=== PATIENT | male | born 1950 | race African-American/Black ===

== ENCOUNTER → 2017-03-16 | Outpatient (CLI) | payer MEDICARE, MEDICAID ==
[~2017-03-16] MED LIST: ALLOPURINOL100 M1 ORAL; BENADRYL25 MG ORAL; COLACE100 MG ORAL; CRESTOR10 M1 ORAL; ERYTHROMYCIN 2%30 GM TP; NEPHROVITE1 TAB ORAL; PLAVIX75 MG ORAL; PREDNISONE20 MG ORAL; PREVACID30 MG ORAL; RENAGEL400 MG ORAL; SENSIPAR30 MG ORAL; ZANTAC150 MG ORAL
--- NOTE | 2017-03-17 08:33 | Diagnostic Imaging Report ---
Indication: Cough Technique: One view of the chest Comparison: 11/02/2016 Findings: Lungs and pleural spaces are clear. Heart size is borderline enlarged. No significant change Impression: No acute process Borderline cardiomegaly
== END | disposition home or self-care (01) ==
LOC: RAD 16:00
DX: I50.9 Heart failure, unspecified (principal); J45.909 Unspecified asthma, uncomplicated
CPT/HCPCS: 71020

== ENCOUNTER 2017-04-29 02:01 | Inpatient (IN) | payer MEDICARE, MEDICAID ==
[~2017-04-29] VITALS: Ht 157.5 cm; Wt 109.3 kg
[2017-04-29] VITALS (7 sets, daily range): BP systolic 92–153; BP diastolic 64–84
[2017-04-29] MEDS ORDERED: Albuterol ud Inhalation ONE (02:25)
[2017-04-29] MEDS ORDERED: Ipratropium 0.02% Inh Soln 2.5ml UD ONE (02:25)
[2017-04-29] MEDS ORDERED: Albuterol ud Inhalation HHN ONE ×2 (02:30→04:15)
[2017-04-29] MEDS ORDERED: Solu-MEDROL 125mg Inj IVP ONE (02:30)
[2017-04-29] MEDS ORDERED: Ipratropium 0.02% Inh Soln 2.5ml UD HHN ONE (02:30)
[2017-04-29 02:47] LABS: BASOPHILS % (AUTO) 0.6 % (0.0-2.0); LYMPHOCYTES % (AUTO) 15.9 % (20.0-45.0); MEAN CORPUSCULAR HEMOGLOBIN 28.3 PG (27.0-31.0); MEAN CORPUSCULAR HGB CONC 31.4 G/DL (32.0-36.0); MEAN CORPUSCULAR VOLUME 90 FL (80-99); MEAN PLATELET VOLUME 7.8 FL (6.5-10.1); MONOCYTES % (AUTO) 10.1 % (1.0-10.0); NEUTROPHILS % (AUTO) 70.4 % (45.0-75.0); PLATELET COUNT 119 K/UL (150-450); RED BLOOD COUNT 5.24 M/UL (4.70-6.10); RED CELL DISTRIBUTION WIDTH 13.7 % (11.6-14.8); WHITE BLOOD COUNT 10.5 K/UL (4.8-10.8)
--- NOTE | 2017-04-29 02:49 | Emergency Room Report ---
History of Present Illness General Chief Complaint: Dyspnea/Respdistress Source: Patient Present Illness HPI Is a 66-year-old male with a history of renal transplant in 2015 at [facility]. He also a history of asthma. He has albuterol and Qvar but doesn't take it regularly. For the last 2 days his been congested and coughing. Rogers wheezy. He took his Qvar said he wasn't helping. No fever or chills. No nausea no vomiting. No chest pain. No pedal edema. Denies any weight gain. Allergies: Coded Allergies: CEPHALEXIN (Verified Allergy, Mild, RASH, 09/14/11) AMOXICILLIN (Verified Allergy, Unknown, RASH, 09/14/11) CODEINE (Verified Allergy, Unknown, RASH, 09/14/11) DOXYCYCLINE (Verified Allergy, 06/21/12) Patient History Past Medical History: see triage record, old chart reviewed, HTN, asthma Past Surgical History: other - Kidney transplant Pertinent Family History: none Social History: Denies: smoking Immunizations: other Reviewed Nursing Documentation: PMH: Agreed, PSxH: Agreed Nursing Documentation-PMH Hx Hypertension: Yes - ESRD Hx Asthma: Yes Hx Dialysis: Yes - KIDNEY TRANSPLANT 2014 Review of Systems Eye: Denies: blurred vision, eye pain ENT: Reports: nose congestion, Denies: ear pain, throat swelling Respiratory: Reports: cough, shortness of breath, wheezing Cardiovascular: Denies: chest pain, palpitations Gastrointestinal: Denies: abdominal pain, diarrhea, nausea, vomiting Musculoskeletal: Denies: back pain, joint pain Skin: Denies: rash Neurological: Denies: headache, numbness Endocrine: Denies: increased thirst, increased urine Hematologic/Lymphatic: Denies: easy bruising All Other Systems: negative except mentioned in HPI Physical Exam Vital Signs Date Time Temp Pulse Resp B/P Pulse Ox O2 Delivery O2 Flow Rate FiO2 04/29/17 02:04 98.1 72 20 118/82 97 Room Air vitals normal Sp02 EP Interpretation: reviewed, normal General Appearance: well appearing, no apparent distress, alert Head: normocephalic, atraumatic Eyes: bilateral eye EOMI, bilateral eye PERRL ENT: hearing grossly normal, normal pharynx Neck: full range of motion, supple, no meningismus Respiratory: chest non-tender, wheezing Cardiovascular #1: regular rate, rhythm, no murmur Gastrointestinal: normal bowel sounds, non tender, no mass, no organomegaly, no bruit, non-distended Musculoskeletal: back normal, gait/station normal, normal range of motion, other - trace edema Neurologic: alert, oriented x3 Psychiatric: mood/affect normal Skin: warm/dry Medical Decision Making Diagnostic Impression: Primary Impression: Acute exacerbation of CHF (congestive heart failure) Qualified Codes: I50.9 - Heart failure, unspecified Additional Impression: Asthma exacerbation ER Course Patient with wheezing and shortness of breath. He has accommodation a mild fluid overloaded and also asthma. Better after breathing treatment. He normally takes 40 mg Lasix twice today. Creatinine is at baseline per patient. I gave him a dose of Lasix IV here. He is feeling better. We'll admit for further workup. No evidence of ACS, PE, dissection to name a few. No pneumonia. Lab Results Impression labs with elevated BUN/creatinine and BNP EKG Diagnostic Results Rate: normal Rhythm: NSR ST Segments: no acute changes Rhythm Strip Diag. Results EP Interpretation: yes Rate: 95 Rhythm: NSR, no PVC's, no ectopy Chest X-Ray Diagnostic Results EP Interpretation: Yes Findings: no consolidation, no effusion, no pneumothorax, other - CM With Vascular congestion Number of Views: 1 Last Vital Signs Date Time Temp Pulse Resp B/P Pulse Ox O2 Delivery O2 Flow Rate FiO2 04/29/17 02:32 82 22 98 Room Air 04/29/17 02:04 98.1 118/82 Status: unchanged Disposition: ADMITTED INPATIENT Condition: Serious EULA PETER M.D. Apr 29, 2017 02:49
[2017-04-29 03:04] LABS: TROPONIN I < 0.30 ng/mL (<=0.30)
[2017-04-29 03:05] LABS: ALBUMIN/GLOBULIN RATIO 1.5 (1.0-2.7); CALCIUM 9.2 mg/dL (8.6-10.2); CREATININE 2.5 mg/dL (0.7-1.2); GLOMERULAR FILTRATION RATE 31.6 mL/min (>60); POTASSIUM 3.9 mEQ/L (3.4-4.9); TOTAL PROTEIN 7.5 g/dL (6.6-8.7)
[2017-04-29 03:15] LABS: CKMB 3.4 ng/mL (< 6.7)
[2017-04-29] MEDS ORDERED: CALTRATE+D3 PL1 EACH PO (03:35)
[2017-04-29] MEDS ORDERED: CLARITIN10 M2 ORAL (03:35)
[2017-04-29] MEDS ORDERED: ZOLPIDEM TARTRA10 MG ORAL (03:35)
[2017-04-29] MEDS ORDERED: FUROSEMIDE40 MG ORAL (03:35)
[2017-04-29] MEDS ORDERED: Calcium Carbonate 500mg w/Vit D 200iu tab ORAL ONE (05:00)
[2017-04-29] MEDS: DuoNeb 0.5-3(2.5)mg/3ml neb HHN PRN ×2 (08:20→15:09)
[2017-04-29] MEDS: Allopurinol 100mg Tab ORAL SCH (09:37)
[2017-04-29] MEDS: PredniSONE 20mg tab ORAL SCH ×2 (09:38→17:18)
[2017-04-29] MEDS: Sensipar 30mg Tab ORAL SCH (09:39)
[2017-04-29] MEDS: Docusate 100mg cap ORAL SCH (09:39)
[2017-04-29] MEDS: Heparin 5000 units/ml inj SUBQ SCH ×2 (09:41→21:00)
--- NOTE | 2017-04-29 11:23 | Diagnostic Imaging Report ---
Indication: SOB Technique: One view of the chest Comparison: March 16, 2017 Findings: The heart is mildly enlarged.. Questionable minimal interstitial congestion. Pleural spaces are clear. No focal airspace consolidation Impression: Megaly Doubt but cannot completely exclude minimal interstitial congestion. Correlate with clinical findings This agrees with the preliminary interpretation provided by the emergency room physician
[2017-04-29] MEDS: Bumetanide 2.5mg/10ml Inj IVP SCH ×2 (15:26→23:50)
--- NOTE | 2017-04-29 15:28 | History & Physical ---
History and Physical History & Physicial H&P dictated # [id number] GARCÍA TIDWELL Apr 29, 2017 15:27
[2017-04-29] MEDS ORDERED: Levofloxacin 500mg tab ORAL ONE (16:00)
--- NOTE | 2017-04-29 16:19 | Consultation ---
Consult Note Assessment/Plan dict asthma exac CKD s/p renal xplnt htn KERI FELIX Apr 29, 2017 16:19
[2017-04-29] MEDS ORDERED: ASPIR 8181 MG ORAL (16:49)
[2017-04-29] MEDS ORDERED: COREG12.5 MG ORAL (17:04)
[2017-04-29] MEDS ORDERED: MYCOPHENOLATE500 MG PO (17:04)
[2017-04-29] MEDS ORDERED: QVAR7.3 GM INH (17:59)
[2017-04-29] MEDS ORDERED: NULOJIX250 MG IV (17:59)
[2017-04-29] MEDS ORDERED: ZANTAC150 MG ORAL (17:59)
[2017-04-29] MEDS ORDERED: ALBUTEROL2.5 MG/3 M INH (17:59)
[2017-04-29] MEDS ORDERED: DOXAZOSIN MESYLA4 MG ORAL (17:59)
[2017-04-29] MEDS ORDERED: CALCITRIOL0.25 MCG PO (17:59)
[2017-04-29] MEDS: DuoNeb 0.5-3(2.5)mg/3ml neb HHN SCH (19:02)
[2017-04-29 19:50] LABS: APPEARANCE,URINE CLEAR; KETONES,URINE NEGATIVE (NEGATIVE); LEUKOCYTE ESTERASE ,URINE 2+ (NEGATIVE); NITRITE,URINE NEGATIVE (NEGATIVE); PH,URINE 5 (4.5-8.0); PROTEIN,URINE 2+ (NEGATIVE); UROBILINOGEN,URINE NORMAL MG/DL (0.0-1.0)
[2017-04-29 19:53] LABS: BACTERIA,URINE FEW /HPF
--- NOTE | 2017-04-29 20:45 | Consultation ---
DATE OF CONSULTATION: 04/29/2017 PULMONARY CONSULTATION CHIEF COMPLAINT: Short of breath. HISTORY OF PRESENT ILLNESS: The patient is a 66-year-old man with a history of asthma. He has inhalers including QVAR and albuterol but he does not take them regularly. He has had a cough and wheezing with shortness of breath over the past few days. He began taking QVAR but it was not helping so he came to the emergency department and admission was arranged. Since admission he states he is feeling better. He did get some breathing treatments and some antibiotics. He is on maintenance steroids for renal transplantation. ALLERGIES: Keflex, amoxicillin, codeine, doxycycline. PAST MEDICAL HISTORY: Hypertension, asthma, kidney transplant. SOCIAL HISTORY: He does not smoke or drink. REVIEW OF SYSTEMS: Otherwise unremarkable. PHYSICAL EXAMINATION: GENERAL: The patient is alert, he is a obese. VITAL SIGNS: Normal. HEENT: Head is normocephalic. NECK: No jugular venous distention. CHEST: Wheezing on exhalation. CARDIAC: Rhythm is regular. ABDOMEN: Soft and nontender. EXTREMITIES: No edema. DIAGNOSTIC DATA: Chest x-ray shows no obvious congestive heart failure. Creatinine is elevated. IMPRESSION: 1. Asthma exacerbation. 2. Chronic renal failure. 3. Status post renal transplantation. 4. Hypertension. PLAN: The patient will continue on breathing treatments as scheduled rather than as needed. We will continue steroids and antibiotics. Early discharge is anticipated. Alireza Cruz M.D. DR: Brigida JOB#: [id number] CC: Foreign Mehta M.D.; Fax#: [phone] Cruz M.D. ; Fax#: [phone]
--- NOTE | 2017-04-29 20:45 | History and Physical Report ---
DATE OF ADMISSION: 04/29/2017 REASON OF ADMISSION: Increasing shortness of breath. HISTORY OF PRESENT ILLNESS: This is a very pleasant 66-year-old male patient of Dr. Foreign Mehta that I am covering for with end-stage renal disease, status post donor kidney transplant in September 2015, has been in his usual state of health until about three to four days ago, when he started to have some rhinorrhea, some cough, and some increasing shortness of breath. He also has been coughing up some yellow greenish sputum. He denies any chills or fever. He has had some increasing wheezing and came to the emergency room of [facility] with these symptoms. He was given some Solu-Medrol IV and 40 mg of IV Lasix. He was decided to be admitted to the hospital. 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 He is status post donor kidney transplant. He has had coronary artery disease with a stable course, however his ejection fraction has been in the range of 45%. Previous episodes of congestive heart failure. History of asthma. 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 PAST SURGICAL HISTORY: Status post AV fistula creation. Status post donor kidney transplant on 10/08/2015. Status post left arm AV fistula and revision. Status post right arm AV fistula. Status post circumcision. Status post prostate biopsy. Status post right inguinal hernia repair. Status post nasal surgery. Status post stent to the LAD. Status post multiple cystoscopy and ureteral stent and nephrostomy tubes in place. SOCIAL HISTORY: Never smoked. No alcohol. No drugs. He is and is having many children. MEDICATIONS: Prednisone 5 mg p.o. daily, CellCept 1000 mg p.o. b.i.d., allopurinol 100 mg p.o. b.i.d., aspirin 81 mg p.o. daily, Lasix 40 mg p.o. daily, Coreg 12.5 mg p.o. b.i.d., calcitriol 0.5 mcg p.o. daily, Sensipar 30 mg p.o. daily, injection once a month by a transplant team, ranitidine 150 mg p.o. daily, Nephro-Dee one tablet p.o. daily, Crestor 10 mg p.o. daily, albuterol inhaler p.r.n., QVAR inhaler p.r.n., and doxazosin 4 mg p.o. b.i.d. REVIEW OF SYSTEMS: General: He has not had any significant weight change. He denies any chills or fever. Cardiovascular: He denies any chest pain. He has some degree of orthopnea with some increasing shortness of breath. Respiratory: He has been having some wheezing and some purulent sputum production. Genitourinary: He is making good urine at this point. Creatinine in the range of 2.5, the baseline. Neurological: He denies any paresthesia, muscle weakness, diplopia, or seizure. Gastrointestinal: He denies any nausea, vomiting, diarrhea, melena, or hematochezia. Hematological: He denies any easy bruising or easy bleeding. Endocrine: He has never been diagnosed with diabetes mellitus. No polydipsia, polyuria, cold or heat intolerance. Remainder of the review of systems has been essentially negative. PHYSICAL EXAMINATION: GENERAL: He does not seem to be in much acute distress. VITAL SIGNS: Blood pressure is 146/69, pulse 76, respirations 18, and temperature 98.2 degrees. HEENT: Head is atraumatic. Eyes, pupils are reactive to light. No evidence of papilledema. Ear canals are clear. Tympanic membranes are intact. Nose, nares are patent without any nasal discharge. Throat without inflammation or exudate. NECK: Supple. Jugular venous distention is somewhat increased. No cervical adenopathy. No thyromegaly. HEART: Regular rhythm. No gallop. LUNGS: There are few exploratory wheezes bilaterally. ABDOMEN: Supple. Bowel sounds are positive. No hepatosplenomegaly. EXTREMITIES: Lower extremity shows 1 to 2+ pedal edema. NEUROLOGICAL: Cranial nerves are intact. There is no focal neurological deficit present. LABORATORY DATA: WBC is 10.5, hemoglobin 14.8, hematocrit 47.2, and platelets 119,000. Sodium is 137, potassium 3.9, chloride 95, carbon dioxide 21, BUN 53, and creatinine 2.5. LFTs are within normal range. The troponin is less than 0.30 and BNP is 5568. DIAGNOSTIC DATA: Chest x-ray is showing some apical redistribution of the vessels. IMPRESSION: 1. End-stage renal disease, status post donor kidney transplant. 2. Underlying chronic kidney disease, probably stage 3 to 4. 3. He has most likely acute exacerbation of chronic diastolic congestive heart failure with some fluid overload at this point. 4. Some underlying acute exacerbation of asthma, may be a contributing factor. PLAN: He is admitted. We are going to start him on Bumex 2 mg IV q.8 h. x2 doses. He is going to get DuoNeb nebulizers q.6 h. Pulmonary consult is in order. I am going to give him some steroids. He received 125 mg of Solu-Medrol in the ER and he is starting on 20 mg of prednisone p.o. b.i.d. Dr. Cruz from pulmonary is going to be consulted for pulmonary consult. Pablo Collins M.D. DR: Keara JOB#: [id number] CC:
[2017-04-29] MEDS ORDERED: Mycophenolate 250mg cap ORAL SCH ×2 (21:00)
[2017-04-29] MEDS: Carvedilol 12.5mg tab ORAL SCH (21:18)
[2017-04-29] MEDS: Doxazosin 4mg tab ORAL SCH (21:18)
[2017-04-29] MEDS: Mycophenolate 250mg cap ORAL SCH (21:19)
[2017-04-30] VITALS: BP 137/69
[2017-04-30 04:00] VITALS: BP 141/72
[2017-04-30] MEDS: DuoNeb 0.5-3(2.5)mg/3ml neb HHN SCH ×4 (07:00→19:45)
[2017-04-30 07:06] LABS: BASOPHILS % (AUTO) 0.3 % (0.0-2.0); LYMPHOCYTES % (AUTO) 10.9 % (20.0-45.0); MEAN CORPUSCULAR HEMOGLOBIN 29.1 PG (27.0-31.0); MEAN CORPUSCULAR HGB CONC 32.2 G/DL (32.0-36.0); MEAN CORPUSCULAR VOLUME 90 FL (80-99); MEAN PLATELET VOLUME 8.8 FL (6.5-10.1); MONOCYTES % (AUTO) 8.2 % (1.0-10.0); NEUTROPHILS % (AUTO) 80.5 % (45.0-75.0); PLATELET COUNT 127 K/UL (150-450); RED BLOOD COUNT 5.09 M/UL (4.70-6.10); RED CELL DISTRIBUTION WIDTH 13.9 % (11.6-14.8); WHITE BLOOD COUNT 11.3 K/UL (4.8-10.8)
[2017-04-30 07:29] LABS: CALCIUM 9.6 mg/dL (8.6-10.2); CREATININE 3.1 mg/dL (0.7-1.2); GLOMERULAR FILTRATION RATE 24.7 mL/min (>60); POTASSIUM 4.4 mEQ/L (3.4-4.9)
[2017-04-30 08:00] VITALS: BP 127/72
[2017-04-30] MEDS: Heparin 5000 units/ml inj SUBQ SCH ×2 (09:00→21:00)
[2017-04-30] MEDS: PredniSONE 20mg tab ORAL SCH ×2 (09:34→17:43)
[2017-04-30] MEDS: Doxazosin 4mg tab ORAL SCH ×2 (09:35→21:17)
[2017-04-30] MEDS: Docusate 100mg cap ORAL SCH (09:35)
[2017-04-30] MEDS: Calcitriol 0.5mcg Cap ORAL SCH (09:36)
[2017-04-30] MEDS: Carvedilol 12.5mg tab ORAL SCH ×2 (09:36→21:18)
[2017-04-30] MEDS: Allopurinol 100mg Tab ORAL SCH (09:37)
[2017-04-30] MEDS: Mycophenolate 250mg cap ORAL SCH ×2 (09:38→21:18)
[2017-04-30] MEDS: Sensipar 30mg Tab ORAL SCH (09:40)
[2017-04-30 12:10] VITALS: BP 130/76
--- NOTE | 2017-04-30 13:16 | Pulmonology Progress Note ---
Assessment/Plan Assessment/Plan 1. Asthma exacerbation. 2. Chronic renal failure. 3. Status post renal transplantation. 4. Hypertension. feels better less cough not SOB cont rx Subjective Constitutional: Denies: fever Respiratory: Reports: productive cough Allergies: Coded Allergies: CEPHALEXIN (Verified Allergy, Mild, RASH, 09/14/11) AMOXICILLIN (Verified Allergy, Unknown, RASH, 09/14/11) CODEINE (Verified Allergy, Unknown, RASH, 09/14/11) DOXYCYCLINE (Verified Allergy, Unknown, 04/29/17) ERYTHROMYCIN BASE (Verified Allergy, Unknown, 04/29/17) Uncoded Allergies: PENICILLIN (Allergy, Unknown, 04/29/17) Objective Last 24 Hour Vital Signs Date Time Temp Pulse Resp B/P Pulse Ox O2 Delivery O2 Flow Rate FiO2 04/30/17 12:10 97.0 70 18 130/76 99 Room Air 04/30/17 10:31 77 20 100 Room Air 04/30/17 10:21 78 20 100 Room Air 04/30/17 09:36 69 130/70 04/30/17 08:00 71 04/30/17 08:00 96.7 57 18 127/72 98 Room Air 04/30/17 07:10 Room Air 04/30/17 07:09 Room Air 04/30/17 04:00 67 04/30/17 04:00 97.0 64 19 141/72 96 Room Air 04/30/17 00:00 77 04/30/17 00:00 97.7 65 19 137/69 95 Room Air 04/29/17 21:18 79 153/73 04/29/17 20:00 79 04/29/17 20:00 97.2 79 18 153/73 97 Room Air 04/29/17 19:11 74 18 99 Room Air 04/29/17 19:03 72 18 96 Room Air 04/29/17 16:04 81 04/29/17 16:00 97.9 77 18 147/74 97 Room Air 04/29/17 15:12 72 18 100 Room Air 04/29/17 15:02 82 18 99 Room Air Intake and Output 04/29/17 04/30/17 19:00 07:00 Intake Total 1060 ml 120 ml Balance 1060 ml 120 ml Intake Oral 1060 ml 120 ml # Voids 3 2 # Bowel Movements 2 General Appearance: no acute distress Respiratory/Chest: expiratory wheezing Cardiovascular: normal rate Laboratory Tests 04/29/17 18:00: Urine Color Pale yellow, Urine Appearance Clear, Urine pH 5, Urine Specific [place] 1.010, Urine Protein 2+H, Urine Glucose (UA) Negative, Urine Ketones Negative, Urine Occult Blood 2+H, Urine Nitrite Negative, Urine Bilirubin Negative, Urine Urobilinogen Normal, Urine Leukocyte Esterase 2+H, Urine RBC 5- 10H, Urine WBC 2-4, Urine Squamous Epithelial Cells None, Urine Bacteria Few 04/30/17 05:50: White Blood Count 11.3H, Red Blood Count 5.09, Hemoglobin 14.8, Hematocrit 46.0 , Mean Corpuscular Volume 90, Mean Corpuscular Hemoglobin 29.1, Mean Corpuscular Hemoglobin Concent 32.2, Red Cell Distribution Width 13.9, Platelet Count 127L, Mean Platelet Volume 8.8, Neutrophils (%) (Auto) 80.5H, Lymphocytes (%) (Auto) 10.9L, Monocytes (%) (Auto) 8.2, Eosinophils (%) (Auto) 0.0, Basophils (%) (Auto) 0.3, Sodium Level 140, Potassium Level 4.4, Chloride Level 95L, Carbon Dioxide Level 25, Anion Gap 20H, Blood Urea Nitrogen 70H, Creatinine 3.1H, Estimat Glomerular Filtration Rate 24.7, Glucose Level 125H, Calcium Level 9.6 Current Medications Medications (Trade) Dose Ordered Sig/Agustín Route PRN Reason Start Time Stop Time Status Last Admin Dose Admin Albuterol/ Ipratropium (DuoNeb 0.5-3(2.5)mg/3ml) 3 ml QIDRT HHN 04/29/17 19:00 05/04/17 18:59 04/30/17 10:21 Allopurinol (Zyloprim) 200 mg DAILY ORAL 04/29/17 09:00 05/29/17 08:59 04/30/17 09:37 Atorvastatin Calcium (Lipitor) 20 mg BEDTIME ORAL 04/30/17 21:00 05/30/17 20:59 Calcitriol (Rocaltrol) 0.5 mcg DAILY ORAL 04/30/17 09:00 05/30/17 08:59 04/30/17 09:36 Carvedilol (Coreg) 12.5 mg EVERY 12 HOURS ORAL 04/29/17 21:00 05/29/17 20:59 04/30/17 09:36 Cinacalcet (Sensipar) 30 mg DAILY ORAL 04/29/17 09:00 05/29/17 08:59 04/30/17 09:40 Docusate Sodium (Colace) 100 mg DAILY ORAL 04/29/17 09:00 05/29/17 08:59 04/30/17 09:35 Doxazosin Mesylate (Cardura) 4 mg Q12HR ORAL 04/29/17 21:00 05/29/17 20:59 04/30/17 09:35 Heparin Sodium (Porcine) (Heparin 5000 units/ml) 5,000 units EVERY 12 HOURS SUBQ 04/29/17 09:00 05/29/17 08:59 04/29/17 09:41 Levofloxacin (Levaquin) 250 mg DAILY ORAL 04/30/17 09:00 05/07/17 08:59 04/30/17 09:36 Mycophenolate Mofetil (Cellcept) 1,000 mg Q12HR ORAL 04/29/17 21:00 05/29/17 20:59 04/30/17 09:38 Prednisone (predniSONE) 20 mg BID ORAL 04/29/17 09:00 05/29/17 08:59 04/30/17 09:34 Ranitidine HCl (Zantac) 150 mg DAILY ORAL 04/29/17 09:00 05/29/17 08:59 04/30/17 09:36 KERI FELIX Apr 30, 2017 13:16
[2017-04-30 16:00] VITALS: BP 136/77
--- NOTE | 2017-04-30 16:56 | General Progress Note ---
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 Plan: Will continue nebs and pulmonary care Will check renal TXP US Subjective Allergies: Coded Allergies: CEPHALEXIN (Verified Allergy, Mild, RASH, 09/14/11) AMOXICILLIN (Verified Allergy, Unknown, RASH, 09/14/11) CODEINE (Verified Allergy, Unknown, RASH, 09/14/11) DOXYCYCLINE (Verified Allergy, Unknown, 04/29/17) ERYTHROMYCIN BASE (Verified Allergy, Unknown, 04/29/17) Uncoded Allergies: PENICILLIN (Allergy, Unknown, 04/29/17) Subjective He is feeling better, he had good diuresis, creat is up to 3.1, less wheezing Objective Last 24 Hour Vital Signs Date Time Temp Pulse Resp B/P Pulse Ox O2 Delivery O2 Flow Rate FiO2 04/30/17 16:00 96.9 79 17 136/77 97 Room Air 04/30/17 15:37 76 16 98 Room Air 04/30/17 15:31 76 16 98 Room Air 04/30/17 12:10 97.0 70 18 130/76 99 Room Air 04/30/17 12:00 68 04/30/17 10:31 77 20 100 Room Air 04/30/17 10:21 78 20 100 Room Air 04/30/17 09:36 69 130/70 04/30/17 08:00 71 04/30/17 08:00 96.7 57 18 127/72 98 Room Air 04/30/17 07:10 Room Air 04/30/17 07:09 Room Air 04/30/17 04:00 67 04/30/17 04:00 97.0 64 19 141/72 96 Room Air 04/30/17 00:00 77 04/30/17 00:00 97.7 65 19 137/69 95 Room Air 04/29/17 21:18 79 153/73 04/29/17 20:00 79 04/29/17 20:00 97.2 79 18 153/73 97 Room Air 04/29/17 19:11 74 18 99 Room Air 04/29/17 19:03 72 18 96 Room Air Intake and Output 04/29/17 04/30/17 19:00 07:00 Intake Total 1060 ml 120 ml Balance 1060 ml 120 ml Intake Oral 1060 ml 120 ml # Voids 3 2 # Bowel Movements 2 Laboratory Tests 04/29/17 18:00: Urine Color Pale yellow, Urine Appearance Clear, Urine pH 5, Urine Specific [place] 1.010, Urine Protein 2+H, Urine Glucose (UA) Negative, Urine Ketones Negative, Urine Occult Blood 2+H, Urine Nitrite Negative, Urine Bilirubin Negative, Urine Urobilinogen Normal, Urine Leukocyte Esterase 2+H, Urine RBC 5- 10H, Urine WBC 2-4, Urine Squamous Epithelial Cells None, Urine Bacteria Few 04/30/17 05:50: White Blood Count 11.3H, Red Blood Count 5.09, Hemoglobin 14.8, Hematocrit 46.0 , Mean Corpuscular Volume 90, Mean Corpuscular Hemoglobin 29.1, Mean Corpuscular Hemoglobin Concent 32.2, Red Cell Distribution Width 13.9, Platelet Count 127L, Mean Platelet Volume 8.8, Neutrophils (%) (Auto) 80.5H, Lymphocytes (%) (Auto) 10.9L, Monocytes (%) (Auto) 8.2, Eosinophils (%) (Auto) 0.0, Basophils (%) (Auto) 0.3, Sodium Level 140, Potassium Level 4.4, Chloride Level 95L, Carbon Dioxide Level 25, Anion Gap 20H, Blood Urea Nitrogen 70H, Creatinine 3.1H, Estimat Glomerular Filtration Rate 24.7, Glucose Level 125H, Calcium Level 9.6 Height (Feet): 5 Height (Inches): 2.00 Weight (Pounds): 241 General Appearance: WD/WN, no apparent distress EENT: PERRL/EOMI Neck: non-tender, normal alignment, supple Cardiovascular: normal rate, regular rhythm, JVD - nl Respiratory/Chest: chest wall non-tender, expiratory wheezing Abdomen: normal bowel sounds, non tender, soft Extremities: normal range of motion, non-tender Edema: mild edema, moderate edema Neurologic: timber 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
[2017-04-30] MEDS ORDERED: Neosporin Oint Ud Pkt TOPIC PRN (18:00)
[2017-04-30 20:20] VITALS: BP 145/70
[2017-04-30] MEDS ORDERED: Atorvastatin 20mg tab ORAL SCH (21:00)
[2017-05-01 00:53] VITALS: BP 144/67
[2017-05-01 04:00] VITALS: BP_SYST 108; BP_SYST 144; BP_DIAS 54; BP_DIAS 85
[2017-05-01] MEDS: DuoNeb 0.5-3(2.5)mg/3ml neb HHN SCH ×4 (07:12→18:56)
[2017-05-01 07:24] LABS: BASOPHILS % (AUTO) 0.3 % (0.0-2.0); EOSINOPHILS % (AUTO) 0.4 % (0.0-3.0); LYMPHOCYTES % (AUTO) 12.2 % (20.0-45.0); MEAN CORPUSCULAR HEMOGLOBIN 28.1 PG (27.0-31.0); MEAN CORPUSCULAR VOLUME 90 FL (80-99); MEAN PLATELET VOLUME 8.3 FL (6.5-10.1); MONOCYTES % (AUTO) 8.1 % (1.0-10.0); PLATELET COUNT 118 K/UL (150-450); RED BLOOD COUNT 5.54 M/UL (4.70-6.10); RED CELL DISTRIBUTION WIDTH 13.8 % (11.6-14.8); WHITE BLOOD COUNT 10.5 K/UL (4.8-10.8)
[2017-05-01 07:48] VITALS: BP 136/74
[2017-05-01 07:49] LABS: CALCIUM 9.6 mg/dL (8.6-10.2); CREATININE 3.1 mg/dL (0.7-1.2); GLOMERULAR FILTRATION RATE 24.7 mL/min (>60); POTASSIUM 4.7 mEQ/L (3.4-4.9)
[2017-05-01] MEDS: Aspirin Baby 81mg ORAL SCH (08:44)
[2017-05-01] MEDS: Mycophenolate 250mg cap ORAL SCH ×2 (08:45→21:13)
[2017-05-01] MEDS: Doxazosin 4mg tab ORAL SCH ×2 (08:45→21:11)
[2017-05-01] MEDS: Docusate 100mg cap ORAL SCH (08:45)
[2017-05-01] MEDS: PredniSONE 20mg tab ORAL SCH ×2 (08:46→17:06)
[2017-05-01] MEDS: Nephrovite tab ORAL SCH (08:46)
[2017-05-01] MEDS: Sensipar 30mg Tab ORAL SCH (08:46)
[2017-05-01] MEDS: Carvedilol 12.5mg tab ORAL SCH ×2 (08:46→21:14)
[2017-05-01] MEDS: Calcitriol 0.5mcg Cap ORAL SCH (08:46)
[2017-05-01] MEDS: Heparin 5000 units/ml inj SUBQ SCH ×3 (08:47→21:16)
[2017-05-01] MEDS: Allopurinol 100mg Tab ORAL SCH (08:47)
--- NOTE | 2017-05-01 10:20 | General Progress Note ---
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 5) Constipation Plan: Will continue nebs and pulmonary care Awaiting renal TXP US Will give Laculose 30 gram po x1 Subjective Allergies: Coded Allergies: CEPHALEXIN (Verified Allergy, Mild, RASH, 09/14/11) AMOXICILLIN (Verified Allergy, Unknown, RASH, 09/14/11) CODEINE (Verified Allergy, Unknown, RASH, 09/14/11) DOXYCYCLINE (Verified Allergy, Unknown, 04/29/17) ERYTHROMYCIN BASE (Verified Allergy, Unknown, 04/29/17) Uncoded Allergies: PENICILLIN (Allergy, Unknown, 04/29/17) Subjective He is feeling better, creat is still 3.1, Renal TXP US results pending, complains about constipation, less sob Objective Last 24 Hour Vital Signs Date Time Temp Pulse Resp B/P Pulse Ox O2 Delivery O2 Flow Rate FiO2 05/01/17 08:46 86 136/74 05/01/17 07:48 97.5 86 18 136/74 98 Room Air 05/01/17 07:05 87 18 100 Room Air 05/01/17 07:00 86 18 98 Room Air 05/01/17 04:44 71 05/01/17 04:00 97.7 88 20 108/54 97 Room Air 05/01/17 04:00 97.7 88 20 144/85 97 Room Air 05/01/17 00:53 97.7 73 24 144/67 95 05/01/17 00:37 81 04/30/17 22:40 80 04/30/17 21:18 80 145/70 04/30/17 20:20 97.7 80 19 145/70 96 Room Air 04/30/17 19:52 74 18 98 Room Air 04/30/17 19:46 73 18 98 Room Air 04/30/17 16:00 96.9 79 17 136/77 97 Room Air 04/30/17 16:00 81 04/30/17 15:37 76 16 98 Room Air 04/30/17 15:31 76 16 98 Room Air 04/30/17 12:10 97.0 70 18 130/76 99 Room Air 04/30/17 12:00 68 04/30/17 10:31 77 20 100 Room Air 04/30/17 10:21 78 20 100 Room Air Intake and Output 04/30/17 05/01/17 19:00 07:00 Intake Total 680 ml Output Total 2 ml Balance 680 ml -2 ml Intake Oral 680 ml Output Urine Total 2 ml # Voids 3 2 # Bowel Movements 1 Laboratory Tests 05/01/17 07:05: White Blood Count 10.5, Red Blood Count 5.54, Hemoglobin 15.5, Hematocrit 50.1, Mean Corpuscular Volume 90, Mean Corpuscular Hemoglobin 28.1, Mean Corpuscular Hemoglobin Concent 31.0L, Red Cell Distribution Width 13.8, Platelet Count 118L , Mean Platelet Volume 8.3, Neutrophils (%) (Auto) 79.0H, Lymphocytes (%) (Auto ) 12.2L, Monocytes (%) (Auto) 8.1, Eosinophils (%) (Auto) 0.4, Basophils (%) ( Auto) 0.3, Sodium Level 137, Potassium Level 4.7, Chloride Level 96L, Carbon Dioxide Level 24, Anion Gap 17H, Blood Urea Nitrogen 76H, Creatinine 3.1H, Estimat Glomerular Filtration Rate 24.7, Glucose Level 113H, Calcium Level 9.6 Height (Feet): 5 Height (Inches): 2.00 Weight (Pounds): 240 General Appearance: WD/WN, no apparent distress EENT: PERRL/EOMI Neck: non-tender, normal alignment Cardiovascular: normal rate, regular rhythm, JVD - nl Respiratory/Chest: chest wall non-tender, expiratory wheezing Abdomen: normal bowel sounds, non tender, soft Edema: mild edema Neurologic: addressograph operator II-XII grossly normal, no motor/sensory deficits GARCÍA TIDWELL May 01, 2017 10:20
[2017-05-01] MEDS ORDERED: Lactulose 20gm/30ml UDC ORAL ONE (10:30)
--- NOTE | 2017-05-01 11:07 | Diagnostic Imaging Report ---
Indication:Elevated Bun and Creatinine. Transplanted kidney Technique: Grayscale and duplex Doppler imaging of the kidneys performed. Comparison: None Findings: Transplant right kidney in the right hemipelvis demonstrated measuring 11 x 5 cm. There is no hydronephrosis. Cortical echogenicity appears normal. Duplex Doppler interrogation performed. Resistive indices measure between 0.69 and 0.80. Qualitatively, there is good diastolic flow during all phases of the cardiac cycle on waveform analysis. Majority of the resistive indices are within normal approximately 0.7. The urinary bladder is unremarkable. There is a stent partially visualized within the bladder. Crow kidneys are small and echogenic Impression: Right iliac fossa transplanted kidney. Duplex Doppler evaluation is negative with appropriate low resistance blood flow demonstrated throughout the cardiac cycle. Apparent catheter within the urinary bladder. Please correlate clinically.
[2017-05-01 11:38] VITALS: BP 135/71
[2017-05-01 16:14] VITALS: BP 134/65
[2017-05-01 20:00] VITALS: BP 143/78
--- NOTE | 2017-05-01 20:18 | Pulmonology Progress Note ---
Assessment/Plan Assessment/Plan 1. Asthma exacerbation. 2. Chronic renal failure. 3. Status post renal transplantation. 4. Hypertension. steroids with taper nebs abx 7 days cxr as out pt check ra sats dc home tentative am per pt fu with dr dodge 1-2 weeks Subjective HEENT: Repors: no symptoms Respiratory: Reports: wheezing - scant Cardiovascular: Reports: no symptoms Gastrointestinal/Abdominal: Reports: no symptoms Genitourinary: Reports: no symptoms Allergies: Coded Allergies: CEPHALEXIN (Verified Allergy, Mild, RASH, 09/14/11) AMOXICILLIN (Verified Allergy, Unknown, RASH, 09/14/11) CODEINE (Verified Allergy, Unknown, RASH, 09/14/11) DOXYCYCLINE (Verified Allergy, Unknown, 04/29/17) ERYTHROMYCIN BASE (Verified Allergy, Unknown, 04/29/17) Uncoded Allergies: PENICILLIN (Allergy, Unknown, 04/29/17) Subjective better today minimal wheezing on RA using MDI at home, neb if needed no cp nv or b leeding no fever minimal cough Objective Last 24 Hour Vital Signs Date Time Temp Pulse Resp B/P Pulse Ox O2 Delivery O2 Flow Rate FiO2 05/01/17 19:10 88 20 98 Room Air 05/01/17 18:57 84 18 98 Room Air 21 05/01/17 16:14 98.1 74 18 134/65 97 Room Air 05/01/17 16:00 72 05/01/17 15:50 71 18 98 Room Air 21 05/01/17 15:35 71 18 98 Room Air 21 05/01/17 12:00 71 05/01/17 11:38 97.0 72 18 135/71 98 Room Air 05/01/17 11:05 86 18 100 Room Air 05/01/17 11:00 84 18 98 Room Air 05/01/17 08:46 86 136/74 05/01/17 08:00 81 05/01/17 07:48 97.5 86 18 136/74 98 Room Air 05/01/17 07:05 87 18 100 Room Air 05/01/17 07:00 86 18 98 Room Air 05/01/17 04:44 71 05/01/17 04:00 97.7 88 20 108/54 97 Room Air 05/01/17 04:00 97.7 88 20 144/85 97 Room Air 05/01/17 00:53 97.7 73 24 144/67 95 05/01/17 00:37 81 04/30/17 22:40 80 04/30/17 21:18 80 145/70 04/30/17 20:20 97.7 80 19 145/70 96 Room Air Intake and Output 04/30/17 05/01/17 19:00 07:00 Intake Total 680 ml Output Total 2 ml Balance 680 ml -2 ml Intake Oral 680 ml Output Urine Total 2 ml # Voids 3 2 # Bowel Movements 1 General Appearance: WD/WN HEENT: atraumatic Respiratory/Chest: expiratory wheezing - scant Cardiovascular: normal rate, regularly irregular Abdomen: no organomegaly, non distended Extremities: no clubbing Skin: no rash, no ulcers Neurologic/Psychiatric: no motor/sensory deficits, alert Lymphatic: no neck adenopathy Laboratory Tests 05/01/17 07:05: White Blood Count 10.5, Red Blood Count 5.54, Hemoglobin 15.5, Hematocrit 50.1, Mean Corpuscular Volume 90, Mean Corpuscular Hemoglobin 28.1, Mean Corpuscular Hemoglobin Concent 31.0L, Red Cell Distribution Width 13.8, Platelet Count 118L , Mean Platelet Volume 8.3, Neutrophils (%) (Auto) 79.0H, Lymphocytes (%) (Auto ) 12.2L, Monocytes (%) (Auto) 8.1, Eosinophils (%) (Auto) 0.4, Basophils (%) ( Auto) 0.3, Sodium Level 137, Potassium Level 4.7, Chloride Level 96L, Carbon Dioxide Level 24, Anion Gap 17H, Blood Urea Nitrogen 76H, Creatinine 3.1H, Estimat Glomerular Filtration Rate 24.7, Glucose Level 113H, Calcium Level 9.6 Current Medications Medications (Trade) Dose Ordered Sig/Agustín Route PRN Reason Start Time Stop Time Status Last Admin Dose Admin Albuterol/ Ipratropium (DuoNeb 0.5-3(2.5)mg/3ml) 3 ml QIDRT HHN 04/29/17 19:00 05/04/17 18:59 05/01/17 18:56 Allopurinol (Zyloprim) 200 mg DAILY ORAL 04/29/17 09:00 05/29/17 08:59 05/01/17 08:47 Aspirin (ASA) 81 mg DAILY ORAL 05/01/17 09:00 05/31/17 08:59 05/01/17 08:44 Atorvastatin Calcium (Lipitor) 40 mg BEDTIME ORAL 04/30/17 21:00 05/30/17 20:59 04/30/17 21:18 Calcitriol (Rocaltrol) 0.5 mcg DAILY ORAL 04/30/17 09:00 05/30/17 08:59 05/01/17 08:46 Carvedilol (Coreg) 12.5 mg EVERY 12 HOURS ORAL 04/29/17 21:00 05/29/17 20:59 05/01/17 08:46 Cinacalcet (Sensipar) 30 mg DAILY ORAL 04/29/17 09:00 05/29/17 08:59 05/01/17 08:46 Docusate Sodium (Colace) 100 mg DAILY ORAL 04/29/17 09:00 05/29/17 08:59 05/01/17 08:45 Doxazosin Mesylate (Cardura) 4 mg Q12HR ORAL 04/29/17 21:00 05/29/17 20:59 05/01/17 08:45 Heparin Sodium (Porcine) (Heparin 5000 units/ml) 5,000 units EVERY 12 HOURS SUBQ 04/29/17 09:00 05/29/17 08:59 04/29/17 09:41 Levofloxacin (Levaquin) 250 mg DAILY ORAL 04/30/17 09:00 05/07/17 08:59 05/01/17 08:46 Mycophenolate Mofetil (Cellcept) 1,000 mg Q12HR ORAL 04/29/17 21:00 05/29/17 20:59 05/01/17 08:45 Neomycin/ Polymyxin/ Bacitracin (Neosporin) 1 applic Q48H PRN TOPIC For RLQ dressing change 04/30/17 18:00 05/30/17 17:59 Prednisone (predniSONE) 20 mg BID ORAL 04/29/17 09:00 05/29/17 08:59 05/01/17 17:06 Ranitidine HCl (Zantac) 150 mg DAILY ORAL 04/29/17 09:00 05/29/17 08:59 05/01/17 08:46 Vitamin B Complex/ Vit C/Folic Acid (Nephrovite) 1 tab DAILY ORAL 05/01/17 09:00 05/31/17 08:59 05/01/17 08:46 ELINOR MOCK DO May 01, 2017 20:18
[2017-05-02] VITALS: BP 133/65
--- NOTE | 2017-05-02 01:11 | Cardiology Report ---
APPROVED REPORT EKG Measurement Heart [id number] Normal sinus rhythm Anterolateral infarct, age undetermined Abnormal ECG
[2017-05-02 04:00] VITALS: BP 131/63
[2017-05-02 07:31] LABS: BASOPHILS % (AUTO) 0.3 % (0.0-2.0); EOSINOPHILS % (AUTO) 0.1 % (0.0-3.0); MEAN CORPUSCULAR HEMOGLOBIN 29.4 PG (27.0-31.0); MEAN CORPUSCULAR HGB CONC 32.6 G/DL (32.0-36.0); MEAN CORPUSCULAR VOLUME 90 FL (80-99); MEAN PLATELET VOLUME 8.7 FL (6.5-10.1); MONOCYTES % (AUTO) 7.9 % (1.0-10.0); NEUTROPHILS % (AUTO) 79.6 % (45.0-75.0); PLATELET COUNT 129 K/UL (150-450); RED BLOOD COUNT 5.13 M/UL (4.70-6.10); RED CELL DISTRIBUTION WIDTH 13.5 % (11.6-14.8); WHITE BLOOD COUNT 9.8 K/UL (4.8-10.8)
[2017-05-02 07:41] LABS: CALCIUM 9.2 mg/dL (8.6-10.2); CREATININE 2.5 mg/dL (0.7-1.2); GLOMERULAR FILTRATION RATE 31.6 mL/min (>60); POTASSIUM 4.6 mEQ/L (3.4-4.9)
[2017-05-02] MEDS: DuoNeb 0.5-3(2.5)mg/3ml neb HHN SCH ×3 (07:57→15:15)
[2017-05-02 08:12] VITALS: BP 134/65
[2017-05-02] MEDS: Heparin 5000 units/ml inj SUBQ SCH (09:00)
[2017-05-02] MEDS: Sensipar 30mg Tab ORAL SCH (09:21)
[2017-05-02] MEDS: Aspirin Baby 81mg ORAL SCH (09:21)
[2017-05-02] MEDS: Carvedilol 12.5mg tab ORAL SCH (09:21)
[2017-05-02] MEDS: Docusate 100mg cap ORAL SCH (09:21)
[2017-05-02] MEDS: PredniSONE 20mg tab ORAL SCH ×2 (09:21→17:41)
[2017-05-02] MEDS: Allopurinol 100mg Tab ORAL SCH (09:22)
[2017-05-02] MEDS: Calcitriol 0.5mcg Cap ORAL SCH (09:22)
[2017-05-02] MEDS: Doxazosin 4mg tab ORAL SCH (09:22)
[2017-05-02] MEDS: Mycophenolate 250mg cap ORAL SCH (09:23)
[2017-05-02] MEDS: Nephrovite tab ORAL SCH (09:23)
[2017-05-02 11:32] VITALS: BP 153/84
[2017-05-02] MEDS ORDERED: LEVAQUIN250 M1 ORAL (13:41)
--- NOTE | 2017-05-02 13:51 | Discharge Summary ---
Discharge Summary Hospital Course Date of Admission Apr 29, 2017 at 04:06 Date of Discharge Admitting Diagnosis CONGESTIVE HEART FAILURE HPI Full dictation # [id number] Discharge Discharge Disposition Patient was discharged to Discharge Diagnoses: GARCÍA TIDWELL May 02, 2017 13:51
[2017-05-02 16:12] VITALS: BP 140/71
--- NOTE | 2017-05-03 05:15 | Discharge Summary ---
DATE OF ADMISSION: 04/29/2017 DATE OF DISCHARGE: 05/02/2017 DISCHARGE DIAGNOSES: 1. Acute exacerbation of asthma. 2. Chronic diastolic heart failure. 3. End-stage renal disease status post donor kidney transplant. 4. 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 5. Acute kidney injury, which has recovered. CLEANING ATTENDANT: Alireza Cruz M.D., Pulmonary. HISTORY OF PRESENT ILLNESS AND HOSPITAL COURSE: For details, please refer to the History and Physical as well as the consult dictated in the chart. 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 He has had a baseline serum creatinine in the range of 2.5 mg/dL. He has presented to the emergency room of [facility] with 2 to 3 days' history of some cough and wheezing as well as shortness of breath and has had some purulent sputum production. Chest x-ray is showing some apical redistribution of the vessels. Subsequently, he was admitted to the hospital and started on nebulizers. Also, started on Levaquin 250 mg p.o. daily and also was given Bumex 2 mg IV q.8 hours x2 because there was an impression that he might have been in some degree of heart failure. With these measures, he improved remarkably. He was also started on prednisone 20 mg p.o. t.i.d., and his serum creatinine went up to about 3.1 mg/dL after diureses and renal transplant ultrasound did not show any signs of hydronephrosis and no elevation of resistive index and he held off the diuretics during the course of hospitalization. His serum creatinine came down eventually to 2.5 mg/dL again. On the day of discharge, his breathing was much better. He is tolerating the prednisone and Levaquin and he is going to be discharged home with all of his previous medications except Lasix. He needs to hold off the Lasix. He does not seem to be in heart failure or volume overloaded at this point and he needs to be continued on Levaquin 250 mg p.o. daily for total of 7 more days as well as prednisone 20 mg p.o. b.i.d. for total of 7 more days. Follow up will be with Dr. Foreign Mehta who is his primary care physician. Pablo Collins M.D. DR: MALIKA JOB#: [id number] CC:
== END 2017-05-02 17:54 | disposition home or self-care (01) | DRG 202 ==
LOC: EMR 02:20 → 2E 04:06 → EDBEDREQ 04:45 → 2E 05:26
DX: J45.901 Unspecified asthma with (acute) exacerbation (principal); I50.32 Chronic diastolic (congestive) heart failure; N18.4 Chronic kidney disease, stage 4 (severe); Z94.0 Kidney transplant status; Z68.41 Body mass index [BMI] 40.0-44.9, adult; Z88.6 Allergy status to analgesic agent; Z88.1 Allergy status to other antibiotic agents; Z88.8 Allergy status to other drugs, medicaments and biological substances; Z99.2 Dependence on renal dialysis; I25.10 Atherosclerotic heart disease of native coronary artery without angina pectoris; I12.9 Hypertensive chronic kidney disease with stage 1 through stage 4 chronic kidney disease, or unspecified chronic kidney disease; E66.9 Obesity, unspecified
CPT/HCPCS: 36415; 71010; 76775; 80048; 80053; 81003; 82550; 82553; 83880; 84484; 85025; 93005; 94640; J7620

== ENCOUNTER 2018-06-27 16:45 | Emergency (ER) | payer MEDICARE, MEDICAID ==
[~2018-06-27] VITALS: Ht 177.8 cm; Wt 117.0 kg
[~2018-06-27 16:45] MED LIST changes: +ALBUTEROL2.5 MG/3 M INH; +ASPIR 8181 MG ORAL; +CALCITRIOL0.25 MCG PO; +CALTRATE+D3 PL1 EACH PO; +CLARITIN10 M2 ORAL; +COREG12.5 MG ORAL; +DOXAZOSIN MESYLA4 MG ORAL; +FUROSEMIDE40 MG ORAL; +LEVAQUIN250 M1 ORAL; +MYCOPHENOLATE500 MG PO; +NULOJIX250 MG IV; +QVAR7.3 GM INH; +ZOLPIDEM TARTRA10 MG ORAL
[2018-06-27 16:58] VITALS: BP 121/69
[2018-06-27] MEDS ORDERED: Ipratropium 0.02% Inh Soln 2.5ml UD HHN ONE (17:15)
[2018-06-27] MEDS ORDERED: Albuterol ud Inhalation HHN ONE (17:15)
[2018-06-27] MEDS ORDERED: Furosemide 40mg tab ORAL ONE (17:30)
[2018-06-27 18:04] VITALS: BP 121/69
--- NOTE | 2018-06-27 18:39 | Emergency Room Report ---
History of Present Illness General Chief Complaint: Dyspnea/Respdistress Source: Patient Present Illness HPI 67-year-old male presents ED for evaluation. Patient complaining of shortness of breath started over the weekend. History of CHF and end-stage renal disease. Status post kidney transplant. Was seen by PMD Dr. Mehta who referred patient here for chest x-ray. Patient states he is compliant with his medications. States he is also wheezing and needs a breathing treatment. No other aggravating relieving factors. Denies any other associated symptoms Allergies: Coded Allergies: CEPHALEXIN (Verified Allergy, Mild, RASH, 09/14/11) AMOXICILLIN (Verified Allergy, Unknown, RASH, 09/14/11) CODEINE (Verified Allergy, Unknown, RASH, 09/14/11) DOXYCYCLINE (Verified Allergy, Unknown, 04/29/17) ERYTHROMYCIN BASE (Verified Allergy, Unknown, 04/29/17) Uncoded Allergies: PENICILLIN (Allergy, Unknown, 04/29/17) Patient History Past Medical History: CHF, renal disease, dialysis Past Surgical History: other - kidney transplant Pertinent Family History: none Social History: Denies: smoking, alcohol use, drug use Immunizations: UTD Reviewed Nursing Documentation: PMH: Agreed; PSxH: Agreed Nursing Documentation-PMH Past Medical History: No History, Except For Hx Cardiac Problems: Yes Hx Hypertension: Yes - ESRD Hx Asthma: Yes Hx Gastrointestinal Problems: Yes - Hernia repair Hx Dialysis: Yes - KIDNEY TRANSPLANT 2014 Hx Neurological Problems: No Review of Systems All Other Systems: negative except mentioned in HPI Physical Exam Vital Signs Date Time Temp Pulse Resp B/P (MAP) Pulse Ox O2 Delivery O2 Flow Rate FiO2 06/27/18 16:50 98.3 71 18 121/69 96 Room Air 98.2 06/27/18 17:18 21 Sp02 EP Interpretation: reviewed, normal General Appearance: no apparent distress, alert, GCS 15, non-toxic, obese Head: normocephalic, atraumatic Eyes: bilateral eye normal inspection, bilateral eye PERRL ENT: hearing grossly normal, normal pharynx, no angioedema, normal voice Neck: full range of motion, supple/symm/no masses Respiratory: chest non-tender, speaking full sentences, wheezing Cardiovascular #1: regular rate, rhythm, no edema Cardiovascular #2: 2+ carotid (R), 2+ carotid (L), 2+ radial (R), 2+ radial (L) , 2+ dorsalis pedis (R), 2+ dorsalis pedis (L) Gastrointestinal: normal bowel sounds, non tender, soft, non-distended, no guarding, no rebound Rectal: deferred Genitourinary: normal inspection, no CVA tenderness Musculoskeletal: back normal, gait/station normal, normal range of motion, non- tender, swelling - 1+ pitting edema b/l LEs Neurologic: alert, oriented x3, responsive, motor strength/tone normal, sensory intact, speech normal Psychiatric: judgement/insight normal, memory normal, mood/affect normal, no suicidal/homicidal ideation Reflexes: 3+ bicep (R), 3+ bicep (L), 3+ tricep (R), 3+ tricep (L), 3+ knee (R) , 3+ knee (L) Skin: normal color, no rash, warm/dry, well hydrated Lymphatic: no adenopathy Medical Decision Making Diagnostic Impression: Primary Impression: CHF (congestive heart failure) Qualified Codes: I50.9 - Heart failure, unspecified ER Course Hospital Course 67-year-old male presents ED complaining of shortness of breath. History of CHF , asthma Differential diagnoses include: URI, bronchitis, asthma/COPD, pneumonia Clinical course Patient placed on stretcher. After initial history, physical exam reveals an elderly male in no acute distress. Bilateral TM unremarkable. No pharyngeal erythema. No tonsillar exudates. No lymphadenopathy. Mild wheezing noted on exam, no signs of respiratory distress or retractions. Mild 1+ pitting edema in lower extremities EKGnormal sinus rhythm no acute ischemic changes interpreted by me chest x-ray shows some pulmonary congestion, however no signs of overt CHF On reassessment patient states he feels better. Discussed findings with PMD Dr. Mehta; agrees that patient can be safely discharged to home and he will follow-up Patient given Lasix here by mouth Diagnosis - CHF Stable and discharged home. Instructed to followup with PMD. Return to ED if symptoms recur or worsen EKG Diagnostic Results Rate: normal Rhythm: NSR ST Segments: no acute changes ASA given to the pt in ED: No Rhythm Strip Diag. Results EP Interpretation: yes Rhythm: NSR, no PVC's, no ectopy Chest X-Ray Diagnostic Results Chest X-Ray Diagnostic Results : Chest X-Ray Ordered: Yes # of Views/Limited/Complete: 1 View Indication: Shortness of Breath EP Interpretation: Yes Interpretation: no consolidation, no pneumothorax, other - cardiomegaly. pulmonary congestion Impression: Other - chf Electronically Signed by: Electronically signed by Bill Núñez MD Last Vital Signs Date Time Temp Pulse Resp B/P (MAP) Pulse Ox O2 Delivery O2 Flow Rate FiO2 06/27/18 18:04 98.2 71 20 121/69 100 Room Air 21 98.2 Status: improved Disposition: HOME, SELF-CARE Condition: Stable Patient Instructions: Heart Failure, [id number] Bill Núñez MD Jun 27, 2018 18:39
--- NOTE | 2018-06-28 12:05 | Diagnostic Imaging Report ---
Indication: Shortness of breath Technique: XRAY Chest 1v Comparison: 04/29/2017 Findings: Stable cardiomegaly. Mediastinal contours are sharp. There is mild pulmonary vascular congestion/interstitial edema. Costophrenic sulci are sharp. No pneumothorax. There are degenerative changes of the spine. No acute osseous abnormality. Impression: Cardiomegaly with pulmonary vascular congestion/mild interstitial edema. This corresponds with the preliminary interpretation of the treating ER clinician, as documented in the electronic medical record.
== END 2018-06-27 18:05 | disposition home or self-care (01) ==
LOC: EMR 17:30
DX: I13.0 Hypertensive heart and chronic kidney disease with heart failure and stage 1 through stage 4 chronic kidney disease, or unspecified chronic kidney disease (principal); I50.9 Heart failure, unspecified; N18.9 Chronic kidney disease, unspecified; Z94.0 Kidney transplant status; Z88.0 Allergy status to penicillin; Z88.1 Allergy status to other antibiotic agents
CPT/HCPCS: 71045; 94640; 94664; 99284